=== PATIENT | female | born 1960 | race Two or more races ===

== ENCOUNTER 2017-06-07 11:23 | Emergency (ER) | payer BC ==
[2017-06-07 11:32] VITALS: BP 113/63
[2017-06-07] MEDS ORDERED: LIDOCAINE 1% INJ-PF (10 MG/ML) 30 ML SDV INJ ONE (12:25)
--- NOTE | 2017-06-07 12:32 | ER Document Report ---
HPI - HPI Pain Level: 3 Notes: Patient is a 57-year-old female presented to the ED with her daughter complaining of an abscess to her lower chest 3 days. Daughter is being used as her shot blast equipment operator today. Patient states that she has had a cystic mass in that area for the last couple of years but noticed over the last few days an increase in redness and pain to that area. She has not noticed any redness or red streaks. She still eating and drinking without any problems. She has not applied anything to the area. Denies any known insect bite to that area. Denies any recent travel, illness, or sick contacts. Denies any history of MRSA. Her PCM is in [facility]. Patient states that she was seen at the ED in [place] 3 days ago and was placed on Bactrim DS, but the redness and swelling have gotten worse since then. No other concerns or complaints. Denies any fever, headache, URI, sore throat, chest pain, palpitations, syncope, cough, wheeze, shortness of breath, abdominal pain, nausea/vomiting/diarrhea, dysuria, joint pains, other rash. Patient states she has an allergy to penicillins-- rash. Patient states that she also has hypertension and p.o. medication controlled diabetes. Denies any other significant past medical history. Denies any smoking or drug use. - ROS Notes: REVIEW OF SYSTEMS: CONSTITUTIONAL : Denies fever, chills, or sweats. Denies recent illness. EENT: Denies eye, ear, throat, or mouth pain or symptoms. Denies nasal or sinus congestion or discharge. Denies throat, tongue, or mouth swelling or difficulty swallowing. CARDIOVASCULAR: Denies chest pain. Denies palpitations or racing or irregular heart beat. Denies ankle edema. RESPIRATORY: Denies cough, cold, or chest congestion. Denies shortness of breath, difficulty breathing, or wheezing. GASTROINTESTINAL: Denies abdominal pain or distention. Denies nausea, vomiting , or diarrhea. Denies blood in vomitus, stools, or per rectum. Denies black, tarry stools. Denies constipation. GENITOURINARY: Denies difficulty urinating, painful urination, burning, frequency, blood in urine, or discharge. MUSCULOSKELETAL: Denies back or neck pain or stiffness. Denies joint pain or swelling. SKIN: see hpi NEUROLOGICAL: Denies confusion or altered mental status. Denies passing out or loss of consciousness. Denies dizziness or lightheadedness. Denies headache. Denies weakness or paralysis or loss of use of either side. Denies problems with gait or speech. Denies sensory loss, numbness, or tingling. ALL OTHER SYSTEMS REVIEWED AND NEGATIVE. Dictation was performed using Perfect voice recognition software - CARDIOVASCULAR Cardiovascular: DENIES: Chest pain - DERM Skin Color: Normal Past Medical History - Social History Smoking Status: Never Smoker Chew tobacco use (# tins/day): No Frequency of alcohol use: None Drug Abuse: None Family History: Reviewed & Not Pertinent Patient has suicidal ideation: No Patient has homicidal ideation: No - Past Medical History Cardiac Medical History: Reports: Hx Hypertension Endocrine Medical History: Reports: Hx Diabetes Mellitus Type 2 Renal/ Medical History: Denies: Hx Peritoneal Dialysis Past Surgical History: Reports: Hx Breast Surgery, Hx Hysterectomy, Hx Orthopedic Surgery - bilat total knees, bilat carpal tunnel - Immunizations Hx Diphtheria, Pertussis, Tetanus Vaccination: - unknown Vertical Provider Document - CONSTITUTIONAL Agree With Documented VS: Yes Notes: PHYSICAL EXAMINATION: GENERAL: Well-appearing, well-nourished and in no acute distress. NECK: Normal range of motion, supple without lymphadenopathy LUNGS: Breath sounds clear to auscultation bilaterally and equal. No wheezes rales or rhonchi. HEART: Regular rate and rhythm without murmurs, rubs, gallops. ABDOMEN: Soft, nontender, nondistended abdomen. No guarding, no rebound. No masses appreciated. Normal bowel sounds present. No CVA tenderness bilaterally. Extremities: No cyanosis, clubbing, or edema b/l. Peripheral pulses 2+. Capillary refill less than 3 seconds. NEUROLOGICAL: Normal speech, normal gait. Normal sensory, motor exams PSYCH: Normal mood, normal affect. SKIN: + erythemic area (approx 2.5cm) to the inferior mid chest/upper abd. + abscess without discharge or streaks. + induration. - INFECTION CONTROL TRAVEL OUTSIDE OF THE [place] IN LAST 30 DAYS: No - RESPIRATORY O2 Sat by Pulse Oximetry: 95 Course - Re-evaluation Re-evalutation: 06/07/17 13:30 Patient is an afebrile, well-hydrated, 57-year-old female presents the ED with an abscess to her inferior chest. Vitals are stable. PE otherwise unremarkable. Low suspicion for any sepsis or systemic illness at this time. Incision and drainage performed successfully without any complications wound culture was obtained. Patient started on Bactrim DS. I will add Keflex to her regimen to take as directed. Wound instructions reviewed. Conservative measures otherwise for symptoms. Recheck with her PCM in 2-3 days. May return to the ED for continued wound care as well. Return to the ED with any worsening /concerning symptoms otherwise as reviewed in discharge. Patient and daughter are in agreement. - Vital Signs Vital signs: Temp Pulse Resp BP Pulse Ox 97.7 F 69 20 113/63 95 06/07/17 11:29 06/07/17 11:29 06/07/17 11:29 06/07/17 11:29 06/07/17 11:29 Procedures - Incision and Drainage Chest Time completed: 13:20 Type: Simple Anesthetic type: 1% Lidocaine mL's of anesthetic: 8 Blade size: 11 I&D procedure: Shurclens applied, Iodoform packing placed, Sterile dressing applied Incision Method: Incision made by scalpel Amount/type of drainage: blood/purulent material approx 8cc Notes: 06/07/17 13:39 Incision and drainage procedure, risks, benefits reviewed with the patient. Verbal and written consent obtained. Sterile technique utilized. The area was extensively cleansed utilizing Hibiclens and saline. A 21-gauge needle was utilized to anesthetize the area using 8 mL's of 1% lidocaine without epinephrine. Once adequate anesthesia was provided, a #11 scalpel was utilized to make an approx 2 cm incision at the site of the abscess. Copious amounts of pustular/bloody material was expressed. Wound culture obtained. Hemostats were then utilized to break up any remaining muscular pockets within the abscess. The wound was then packed using 1/4" iodoform. Wound dressing and triple antibiotic placed. Patient tolerated procedure well. No complications. Discharge - Discharge Clinical Impression: Abscess Condition: Stable Disposition: HOME, SELF-CARE Instructions: Abscess ([facility]), Cephalexin ([facility]), Post Incision and Drainage, Trimethoprim-Sulfa ([facility]) Additional Instructions: Do not shower or bathe for 24 hours. After 24 hours she may shower but no submersion of the wound under water. Keep the original dressing on the wound for 24 hours unless the drainage stops through. Change the dressing daily thereafter and use a small amount of triple antibiotic ointment over the open wound. Return to the ED and/or your PCM in 2-3 days for recheck and continue direction for wound packing. Monitor for any signs of worsening pain or redness , streaks, and/or fever. Return to the ED if noticing any of the above symptoms or as needed. Take medications as directed. Consider consult with General Surgery to excise cyst/lesion once infection heals Monitor for any allergy signs with the keflex (rash, swelling of lips/tongue/ throat, trouble swallowing/breathing, itching)--return to ED with any development of allergy symptoms. Return to the ED with any fever, worsening pain/symptoms, chest pain, palpitations, syncope, cough, wheeze, trouble breathing, shortness of breath, abdominal pain, nausea/vomiting/diarrhea, or any other worsening/concerning symptoms as needed. Prescriptions: Cephalexin Monohydrate [Keflex 500 mg Capsule] 500 mg PO BID #20 capsule Referrals: YOBANI GRIMM MD [ACTIVE STAFF] - Follow up in 1 week
== END 2017-06-07 14:04 | disposition home or self-care (01) ==
LOC: ER 11:23
PROC: 0H95XZZ Drainage of Chest Skin, External Approach (ICD-10-PCS; principal; 2017-06-07)
DX: L02.213 Cutaneous abscess of chest wall (principal); I10 Essential (primary) hypertension; E11.9 Type 2 diabetes mellitus without complications; Z90.710 Acquired absence of both cervix and uterus
CPT/HCPCS: 87070; 87075; 87077; 87186; 87205; 99283; A6266

== ENCOUNTER 2017-06-08 15:32 | Emergency (ER) | payer BC ==
[2017-06-08] MEDS ORDERED: CEFTRIAXONE INJ 1000 MG VIAL IM ONE (16:44)
[2017-06-08] MEDS ORDERED: LIDOCAINE 1% INJ-PF (10 MG/ML) 30 ML SDV INJ ONE (16:44)
[2017-06-08] MEDS ORDERED: HYDROCODONE/ACETAMINOPHEN 5-325 MG 6 TAB/DSPK PO PRN (16:45)
--- NOTE | 2017-06-08 16:48 | ER Document Report ---
HPI - HPI Pain Level: 4 Notes: Patient is a 57-year-old female who presents the ED for a wound recheck of her incision and drainage that was performed by myself yesterday. Worried because she felt some chills last night along with continued pain and drainage. Otherwise she is still taking her medication as directed. Denies any worsening redness, streaks, fever, chest pain, palpitations, sleeping, cough, shortness of breath, abdominal pain, nausea/vomiting/diarrhea. Patient is currently taking Bactrim and Keflex for her infection. Patient is accompanied by her daughter again. - ROS Notes: REVIEW OF SYSTEMS: CONSTITUTIONAL : Denies fever, chills, or sweats. Denies recent illness. CARDIOVASCULAR: Denies chest pain. Denies palpitations or racing or irregular heart beat. Denies ankle edema. RESPIRATORY: Denies cough, cold, or chest congestion. Denies shortness of breath, difficulty breathing, or wheezing. GASTROINTESTINAL: Denies abdominal pain or distention. Denies nausea, vomiting , or diarrhea. Denies blood in vomitus, stools, or per rectum. Denies black, tarry stools. Denies constipation. GENITOURINARY: Denies difficulty urinating, painful urination, burning, frequency, blood in urine, or discharge. MUSCULOSKELETAL: Denies back or neck pain or stiffness. Denies joint pain or swelling. SKIN: see hpi NEUROLOGICAL: Denies confusion or altered mental status. Denies passing out or loss of consciousness. Denies dizziness or lightheadedness. Denies headache. Denies weakness or paralysis or loss of use of either side. Denies problems with gait or speech. Denies sensory loss, numbness, or tingling. Denies seizures. PSYCHIATRIC: Denies anxiety or stress. Denies depression, suicidal ideation, or homicidal ideation. ALL OTHER SYSTEMS REVIEWED AND NEGATIVE. Dictation was performed using [employer] voice recognition software - DERM Skin Color: Normal Past Medical History - Social History Smoking Status: Unknown if Ever Smoked Family History: Reviewed & Not Pertinent Patient has suicidal ideation: No Patient has homicidal ideation: No - Past Medical History Cardiac Medical History: Reports: Hx Hypertension Endocrine Medical History: Reports: Hx Diabetes Mellitus Type 2 Renal/ Medical History: Denies: Hx Peritoneal Dialysis Past Surgical History: Reports: Hx Breast Surgery, Hx Hysterectomy, Hx Orthopedic Surgery - bilat total knees, bilat carpal tunnel - Immunizations Hx Diphtheria, Pertussis, Tetanus Vaccination: - unknown Vertical Provider Document - CONSTITUTIONAL Agree With Documented VS: Yes Notes: PHYSICAL EXAMINATION: GENERAL: Well-appearing, well-nourished and in no acute distress. Chest/Upper abd: healing I&D visualized. + erythema surrounding the where the procedure took place. Improved from yesterday. Packing still in place. Discharge noted to the gauze upon removal. No abundant purulent discharge noted or foul smell. No streaks or new abscess formation noted. LUNGS: Breath sounds clear to auscultation bilaterally and equal. No wheezes rales or rhonchi. HEART: Regular rate and rhythm without murmurs, rubs, gallops. PSYCH: Normal mood, normal affect. SKIN: Warm, Dry, normal turgor, no rashes or lesions noted.--See exam above as well. - INFECTION CONTROL TRAVEL OUTSIDE OF THE [place] IN LAST 30 DAYS: No - RESPIRATORY O2 Sat by Pulse Oximetry: 96 Course - Re-evaluation Re-evalutation: 06/08/17 21:51 Patient is an afebrile, well-hydrated, 57-year-old female who presents the ED for a wound recheck status post incision and drainage performed by myself yesterday. Vitals are stable. PE otherwise unremarkable. The infected area appears to be improving, and not getting worse. I would like her to continue the Bactrim and Keflex combination. Reviewed her wound culture and a preliminary report stated gram-negative organism. Rocephin 1 g given IM today. Because of the discomfort the patient states she is experiencing, I will also send her home with a [employer] for [employer] dispense back from the ED. We will leave the packing in place until tomorrow, at which time the packing can be removed and if needed new packing can then be placed--provider discretion. Continue wound care as instructed. Recheck with the ED/PCM/urgent care for wound recheck tomorrow. Return to ED with any worsening/concerning symptoms otherwise as reviewed in discharge. Patient and daughter are in agreement. - Vital Signs Vital signs: Temp Pulse Resp BP Pulse Ox 98.3 F 78 15 109/64 96 06/08/17 15:40 06/08/17 15:40 06/08/17 15:40 06/08/17 15:40 06/08/17 15:40 Discharge - Discharge Clinical Impression: Encounter for wound re-check Condition: Stable Disposition: HOME, SELF-CARE Instructions: Abscess ([facility]) Additional Instructions: Continue direction as per yesterday's visit Continue taking medications as directed Keep the skin clean and apply bacitracin daily Tylenol/ibuprofen as needed Recheck with a PCM/ED tomorrow for packing removal and recheck Return to the ED sooner with any development of fever, chest pain, palpitations , shortness of breath, trouble breathing, abdominal pain, nausea/vomiting, worsening redness/streaks, or any other worsening/concerning symptoms otherwise as needed. Referrals: YOBANI GRIMM MD [ACTIVE STAFF] - Follow up as needed DERMATOLOGY [Provider Group] - Follow up as needed
[2017-06-08 17:21] VITALS: BP 112/67
== END 2017-06-08 17:21 | disposition home or self-care (01) ==
LOC: ER 15:32
DX: Z48.89 Encounter for other specified surgical aftercare (principal); B99.9 Unspecified infectious disease; R68.83 Chills (without fever); E11.9 Type 2 diabetes mellitus without complications; I10 Essential (primary) hypertension
CPT/HCPCS: 99282; 96372; J3490; J0696

== ENCOUNTER 2017-06-09 10:33 | Emergency (ER) | payer BC ==
[2017-06-09 10:40] VITALS: BP 102/55
--- NOTE | 2017-06-09 11:11 | ER Document Report ---
ED Suture/Wound Recheck - General Chief Complaint: Wound Recheck Stated Complaint: WOUND RECHECK Time Seen by Provider: 06/09/17 10:45 Notes: 57 yo female here for wound check of I&D site to chest wall. wound was re- packed yesterday. pt received a Rocephin injection and is taking oral antibiotics as prescribed. pt reports feeling better than yesterday. no chills , no fever. has not needed any pain medication. TRAVEL OUTSIDE OF THE [place] IN LAST 30 DAYS: No - HPI Previous ED treatment: I&D of abscess Antibiotics given previously: IM Quality of pain: No pain Symptoms since procedure: No complaints Exacerbated by: Denies Relieved by: Denies - Related Data Allergies/Adverse Reactions: Penicillins Allergy (Verified 06/08/17 15:39) Past Medical History - General Information source: Patient, Relative - Social History Smoking Status: Never Smoker Frequency of alcohol use: None Lives with: Family Family History: Reviewed & Not Pertinent Patient has suicidal ideation: No Patient has homicidal ideation: No - Past Medical History Cardiac Medical History: Reports: Hx Hypertension Endocrine Medical History: Reports: Hx Diabetes Mellitus Type 2 Renal/ Medical History: Denies: Hx Peritoneal Dialysis Past Surgical History: Reports: Hx Breast Surgery, Hx Hysterectomy, Hx Orthopedic Surgery - bilat total knees, bilat carpal tunnel - Immunizations Hx Diphtheria, Pertussis, Tetanus Vaccination: - unknown Review of Systems - Review of Systems Constitutional: No symptoms reported EENT: No symptoms reported Cardiovascular: No symptoms reported Respiratory: No symptoms reported Gastrointestinal: No symptoms reported Genitourinary: No symptoms reported Female Genitourinary: No symptoms reported Musculoskeletal: No symptoms reported Skin: No symptoms reported Hematologic/Lymphatic: No symptoms reported Neurological/Psychological: No symptoms reported Physical Exam - Vital signs Vitals: Temp Pulse Resp BP Pulse Ox 97.7 F 75 16 102/55 L 96 06/09/17 10:39 06/09/17 10:39 06/09/17 10:39 06/09/17 10:39 06/09/17 10:39 Interpretation: Normal - General General appearance: Appears well, Alert - HEENT Head: Normocephalic, Atraumatic Eyes: Normal Pupils: PERRL - Respiratory Respiratory status: No respiratory distress Chest status: Nontender Breath sounds: Normal Chest palpation: Normal - Cardiovascular Rhythm: Regular Heart sounds: Normal auscultation Murmur: No - Abdominal Inspection: Normal Distension: No distension Bowel sounds: Normal Tenderness: Nontender Organomegaly: No organomegaly - Back Back: Normal, Nontender - Extremities General upper extremity: Normal inspection, Nontender, Normal color, Normal ROM , Normal temperature General lower extremity: Normal inspection, Nontender, Normal color, Normal ROM , Normal temperature, Normal weight bearing. No: Ernesto's sign - Neurological Neuro grossly intact: Yes Cognition: Normal Orientation: AAOx4 Clarissa Coma Scale Eye Opening: Spontaneous [place] Coma Scale Verbal: Oriented [place] Coma Scale Motor: Obeys Commands [place] Coma Scale Total: 15 Speech: Normal Motor strength normal: LUE, RUE, LLE, RLE Sensory: Normal - Psychological Associated symptoms: Normal affect, Normal mood - Skin Skin Temperature: Warm - I&D site to anterior chest with no erythema, packing removed. no drainage. Skin Moisture: Dry Skin Color: Normal Course - Re-evaluation Re-evalutation: 06/09/17 11:11 wound not repacked. healing well. bacitracin and dressing applied. reviewed wound care. pt stable for discharge - Vital Signs Vital signs: Temp Pulse Resp BP Pulse Ox 97.7 F 75 16 102/55 L 96 06/09/17 10:39 06/09/17 10:39 06/09/17 10:39 06/09/17 10:39 06/09/17 10:39 Discharge - Discharge Clinical Impression: Abscess Condition: Stable Disposition: HOME, SELF-CARE Instructions: Abscess ([facility]), Post Incision and Drainage Additional Instructions: wash wound with antibacterial soap and water, irrigate well apply bacitracin and bandaid after cleaning continue current antibiotics as prescribed follow up with primary care
== END 2017-06-09 11:19 | disposition home or self-care (01) ==
LOC: ER 10:33
DX: L02.213 Cutaneous abscess of chest wall (principal)
CPT/HCPCS: 99282

== ENCOUNTER → 2018-10-05 | Outpatient (CLI) | payer OTHER, BC ==
[2018-10-05 12:30] LABS: URIC ACID 5.2 mg/dL (2.5-7.5)
== END ==
LOC: OD 11:26
PROVIDERS: ATTEND Orthopaedic Surgery
DX: M18.12 Unilateral primary osteoarthritis of first carpometacarpal joint, left hand (principal)
CPT/HCPCS: 36415; 84550; 85652; 86038; 86140; 86200; 86430

== ENCOUNTER → 2019-06-23 | Outpatient (CLI) | payer BC ==
--- NOTE | 2019-06-23 12:37 | RADIOLOGY REPORT (SQ) ---
EXAM DESCRIPTION: CT ABD/PELVIS NO ORAL OR IV COMPLETED DATE/TIME: 06/23/2019 10:27 am REASON FOR STUDY: R10.2 PELVIC AND PERINEAL PAIN R10.2 PELVIC AND PERINEAL PAIN COMPARISON: None. TECHNIQUE: CT scan of the abdomen and pelvis performed without intravenous or oral contrast. Images reviewed with lung, soft tissue, and bone windows. Reconstructed coronal and sagittal MPR images revi ewed. All images stored on PACS. All CT scanners at this facility use dose modulation, iterative reconstruction, and/or weight based d osing when appropriate to reduce radiation dose to as low as reasonably achievable (ALARA). [facility]: Dose Right [facility]: CareDose [facility]: Dose Right [facility]: Teradose 4D [facility]: Smart FolioDynamix RADIATION DOSE: CT Rad equipment meets quality standard of care and radiation dose reduction techniq ues were employed. CTDIvol: 24.7 mGy. DLP: 1295 mGy-cm.mGy. LIMITATIONS: None. FINDINGS: LOWER CHEST: No significant findings. No nodules or infiltrates. NON-CONTRASTED LIVER, SPLEEN, ADRENALS: Evaluation limited by lack of IV contrast. No identified sign ificant masses. PANCREAS: No masses. No peripancreatic inflammatory changes. GALLBLADDER: No identified stones by CT criteria. No inflammatory changes to suggest cholecystitis. RIGHT KIDNEY AND URETER: No suspicious masses. Assessment limited by lack of IV contrast. No signif icant calcifications. No hydronephrosis or hydroureter. LEFT KIDNEY AND URETER: No suspicious masses. Assessment limited by lack of IV contrast. No signifi cant calcifications. No hydronephrosis or hydroureter. AORTA AND RETROPERITONEUM: No aneurysm. No retroperitoneal masses or adenopathy. BOWEL AND PERITONEAL CAVITY: No obvious masses or inflammatory changes. No free fluid. APPENDIX: Normal. PELVIS, BLADDER, AND ABDOMINAL WALL:No abnormal masses. No free fluid. Bladder normal. BONES: No significant findings. OTHER: No other significant finding. IMPRESSION: NO SIGNIFICANT OR ACUTE PROCESS IN THE ABDOMEN OR PELVIS. COMMENT: Quality ID # [id number]: Final reports with documentation of one or more dose reduction techniques (e.g., Automated exposure control, adjustment of the mA and/or kV according to patient size, use of iterative reconstruction technique) TECHNICAL DOCUMENTATION: JOB ID: [id number] [employer]- All Rights Reserved Reading location - IP/workstation name: [facility]
== END ==
LOC: RAD 09:55
PROVIDERS: ATTEND Obstetrics & Gynecology
DX: N93.9 Abnormal uterine and vaginal bleeding, unspecified (principal)
CPT/HCPCS: 74176

== ENCOUNTER 2020-01-05 11:27 | Emergency (ER) | payer BC ==
[2020-01-05 12:04] VITALS: BP 134/72
--- NOTE | 2020-01-05 12:19 | ER Document Report ---
HPI - HPI Time Seen by Provider: 01/05/20 12:07 Pain Level: 1 Notes: Patient is a 59-year-old female with no stated past medical history presents complaining of cat bite to her right hand that occurred 1.5 days ago. Patient states that she has noted some swelling and some pain today. She has not noticed any abscess or purulent discharge. Patient states that it was her own cat that is vaccinated that bit her. The cat has not been acting strangely or sickly. She has no other concerns or complaints. She does have an allergy to penicillins which causes a rash. Denies any headache, fever, neck pain, URI, sore throat, chest pain, palpitations, syncope, cough, shortness of breath, wheeze, dyspnea, abdominal pain, nausea/vomiting/diarrhea, urinary retention, dysuria, hematuria, loss of control of bowel or bladder, numbness/tingling, saddle anesthesia, muscle paralysis, or rash. - ROS Systems Reviewed and Negative: Yes All other systems reviewed and negative Past Medical History - Social History Smoking Status: Never Smoker Family History: Reviewed & Not Pertinent Patient has suicidal ideation: No Patient has homicidal ideation: No - Past Medical History Cardiac Medical History: Reports: Hx Hypertension Denies: Hx Coronary Artery Disease, Hx Heart Attack Pulmonary Medical History: Denies: Hx Asthma, Hx Bronchitis, Hx COPD, Hx Pneumonia Neurological Medical History: Denies: Hx Cerebrovascular Accident, Hx Seizures Endocrine Medical History: Reports: Hx Diabetes Mellitus Type 2 Renal/ Medical History: Denies: Hx Peritoneal Dialysis Musculoskeletal Medical History: Denies Hx Arthritis Past Surgical History: Reports: Hx Breast Surgery, Hx Hysterectomy, Hx Orthopedic Surgery - bilat total knees, bilat carpal tunnel - Immunizations Hx Diphtheria, Pertussis, Tetanus Vaccination: Yes - unknown Vertical Provider Document - CONSTITUTIONAL Agree With Documented VS: Yes Notes: PHYSICAL EXAMINATION: GENERAL: Well-appearing, well-nourished and in no acute distress. LUNGS: Breath sounds clear to auscultation bilaterally and equal. No wheezes rales or rhonchi. HEART: Regular rate and rhythm without murmurs, rubs, gallops. Musculoskeletal: FROM to passive/active. Strength 5+/5. No bony tenderness. N/V intact distal throughout. Extremities: No cyanosis, clubbing, or edema b/l. Peripheral pulses 2+. Capillary refill less than 3 seconds. NEUROLOGICAL: Cranial nerves grossly intact. Normal speech, normal gait. Normal sensory, motor exams PSYCH: Normal mood, normal affect. SKIN: rt hand: there is a small puncture site noted with surrounding erythema. No fluctuance, streaks, induration, or discharge noted. + mild tenderness. - INFECTION CONTROL TRAVEL OUTSIDE OF THE [place] IN LAST 30 DAYS: No Course - Re-evaluation Re-evalutation: 01/05/20 12:21 Patient is an afebrile, well-hydrated, 59-year-old female who presents to the ED with cat bite to the right hand with cellulitis present, no evidence of abscess warranting I&D. Vitals are acceptable without any significant tachycardia, tachypnea, or hypoxia. PE is otherwise unremarkable for any neurovascular compromise, obvious tendon/ligament rupture, obvious fracture/dislocation, septic joint. Patient is nontoxic-appearing. No other labs or imaging warrant ed at this time based on H&P. Due to patient's penicillin allergy, I will send her home with clindamycin and Bactrim. Conservative measures otherwise for symptoms. Recheck with your PCM in 3-5 days. Consider consult orthopedics. Return to the ED with any worsening/concerning symptoms otherwise as reviewed in discharge. Patient is in agreement. - Vital Signs Vital signs: Temp Pulse Resp BP Pulse Ox 97.9 F 85 20 134/72 H 95 01/05/20 12:03 01/05/20 12:03 01/05/20 12:03 01/05/20 12:03 01/05/20 12:03 Discharge - Discharge Clinical Impression: Cat bite of right hand Qualifiers: Encounter type: initial encounter Qualified Code(s): S61.451A - Open bite of right hand, initial encounter Condition: Stable Disposition: HOME, SELF-CARE Additional Instructions: Keep the skin clean Wash with soap and water Tylenol/ibuprofen if needed Triple antibiotic ointment daily Take medication as directed Monitor for any worsening symptoms Recheck with your PCM in 3-5 days Consider consult with General Surgeon for ongoing/worsening symptoms Return to the ED with any worsening symptoms and/or development of fever, headache, chest pain, palpitations, syncope, shortness of breath, trouble breathing, abdominal pain, n/v/d, abscess, purulent discharge, red streaks, worsening swelling, or other worsening symptoms that are concerning to you. Prescriptions: Sulfamethoxazole/Trimethoprim [Bactrim Ds Tablet] 1 each PO BID #20 tablet Clindamycin HCl 300 mg PO TID #30 capsule Forms: Elevated Blood Pressure Referrals: SHERIE DOMINGUEZ MD [ACTIVE STAFF] - Follow up as needed
== END 2020-01-05 12:19 | disposition home or self-care (01) ==
LOC: ER 11:27
DX: S61.451A Open bite of right hand, initial encounter (principal); L03.113 Cellulitis of right upper limb; W55.01XA Bitten by cat, initial encounter; I10 Essential (primary) hypertension; E11.9 Type 2 diabetes mellitus without complications; Z23 Encounter for immunization; Z90.710 Acquired absence of both cervix and uterus
CPT/HCPCS: 99283

== ENCOUNTER 2020-04-10 16:29 | Emergency (ER) | payer BC ==
[2020-04-10 16:47] VITALS: BP 135/72
--- NOTE | 2020-04-10 17:10 | ER Document Report ---
HPI - HPI Patient complains to provider of: left foot pain Time Seen by Provider: 04/10/20 16:55 Onset: Other - 2 weeks Onset/Duration: Persistent Quality of pain: Achy Context: This 60-year-old female history of diabetes who speaks primarily Gabonese presents to the emergency department with complaints of left foot pain for the past 2 weeks. Denies trauma. Reports it feels like something is in her foot. Interpretation done by Angela. She denies fever vomiting diarrhea. Reports it hurts to walk. Associated Symptoms: None Exacerbated by: Walking Relieved by: Denies Similar symptoms previously: No Recently seen / treated by doctor: No Past Medical History - General Information source: Patient - Social History Smoking Status: Unknown if Ever Smoked Cigarette use (# per day): No Frequency of alcohol use: None Drug Abuse: None Family History: Reviewed & Not Pertinent Patient has suicidal ideation: No Patient has homicidal ideation: No - Past Medical History Cardiac Medical History: Reports: Hx Hypertension Denies: Hx Coronary Artery Disease, Hx Heart Attack Pulmonary Medical History: Denies: Hx Asthma, Hx Bronchitis, Hx COPD, Hx Pneumonia Neurological Medical History: Denies: Hx Cerebrovascular Accident, Hx Seizures Endocrine Medical History: Reports: Hx Diabetes Mellitus Type 2 Renal/ Medical History: Denies: Hx Peritoneal Dialysis Musculoskeletal Medical History: Denies Hx Arthritis Past Surgical History: Reports: Hx Breast Surgery, Hx Hysterectomy, Hx Orthopedic Surgery - bilat total knees, bilat carpal tunnel - Immunizations Hx Diphtheria, Pertussis, Tetanus Vaccination: Yes - unknown Vertical Provider Document - CONSTITUTIONAL Agree With Documented VS: Yes Exam Limitations: No Limitations General Appearance: WD/WN, No Apparent Distress - INFECTION CONTROL TRAVEL OUTSIDE OF THE [place] IN LAST 30 DAYS: No - HEENT HEENT: Atraumatic, Normocephalic - NECK Neck: Supple - RESPIRATORY Respiratory: No Respiratory Distress - CARDIOVASCULAR Cardiovascular: Regular Rate - MUSCULOSKELETAL/EXTREMETIES Musculoskeletal/Extremeties: MAEW, FROM, Tender - plantar wart noted to left midlateral foot, no erythema/no warmth. cap refill <3 seconds, pedal pulse +3 - NEURO Level of Consciousness: Awake, Alert, Appropriate Motor/Sensory: No Motor Deficit - DERM Integumentary: Warm, Dry Course - Re-evaluation Re-evalutation: 04/10/20 17:19 60-year-old female with history of diabetes presents with plantars wart to the bottom of her left foot. Patient reports he felt like something was in the foot so I did offer an x-ray which she declined. Patient reports it has been there for the past 2 weeks and would like me to remove it. We discussed [id number] treatment. Patient speaks primarily [place]onese but does speak and understand some [place] Citizen. Patient also reports that she does read [place] Citizen. She was given written resource information regarding plantars warts and treatment. She was instructed to monitor the bottom of her foot and follow-up with her primary care provider within 1 week. She was instructed to monitor her foot for signs of infection such as redness swelling pain. She was instructed on the concern regarding infection because she is a diabetic. She verbalized understanding to all instructions. - Vital Signs Vital signs: Temp Pulse Resp BP Pulse Ox 98.2 F 78 16 135/72 H 95 04/10/20 16:45 04/10/20 16:45 04/10/20 16:45 04/10/20 16:45 04/10/20 16:45 Discharge - Discharge Clinical Impression: Foot pain, left, Plantar wart of left foot Condition: Stable Disposition: HOME, SELF-CARE Instructions: Plantar Warts ([facility]), Salicylic Acid Medication Additional Instructions: *You have been treated for a plantars wart *Apply Salicylic acid twice a day: Soak wart in warm water for 5 minutes. Dry area thoroughly. Apply 1 drop to cover wart. Let dry. Repeat once or twice daily until wart is removed for up to 12 weeks. DO NOT APPLY SALICYLIC ACID IF YOUR FOOT BECOMES RED, WARM, INCREASED PAIN *Monitor your foot for signs of infection such as increasing pain, redness, swelling, warmth, *Wear good supporting shoes *Follow up with your primary care provider within 1 week *Return to emergency department worsening symptoms, concerns, signs of infection Monitor your blood pressure. Your blood pressure was elevated today. This may be because you were anxious, in pain or because you need medication. It is important to follow up with your primary care provider for full evaluation. Forms: Elevated Blood Pressure
== END 2020-04-10 17:30 | disposition home or self-care (01) ==
LOC: ER 16:29
DX: B07.0 Plantar wart (principal); M79.672 Pain in left foot; I10 Essential (primary) hypertension; E11.9 Type 2 diabetes mellitus without complications
CPT/HCPCS: 99283

== ENCOUNTER → 2020-10-10 | Outpatient (CLI) | payer BC ==
[2020-10-10 12:03] LABS: HEMATOCRIT 41.1 % (36.0-47.0); HEMOGLOBIN 13.9 g/dL (12.0-15.5); MEAN CORPUSCULAR HEMOGLOBIN 29.6 pg (27.0-33.4); MEAN CORPUSCULAR HGB CONC 33.8 g/dL (32.0-36.0); MEAN CORPUSCULAR VOLUME 88 fl (80-97); PLATELET COUNT 247 10^3/uL (150-450); RED CELL DISTRIBUTION WIDTH 13.9 % (11.5-14.0); WHITE BLOOD COUNT 5.3 10^3/uL (4.0-10.5)
[2020-10-10 12:24] LABS: ALBUMIN 4.7 g/dL (3.5-5.0); ALKALINE PHOSPHATASE 107 U/L (38-126); ANION GAP 12 (5-19); ASPARTATE AMINO TRANSFERASE 28 U/L (14-36); BILIRUBIN,TOTAL 0.8 mg/dL (0.2-1.3); BLOOD UREA NITROGEN 14 mg/dL (7-20); CALCIUM 9.6 mg/dL (8.4-10.2); CARBON DIOXIDE 25 mmol/L (22-30); CHLORIDE 104 mmol/L (98-107); GLUCOSE 100 mg/dL (75-110); POTASSIUM 4.7 mmol/L (3.6-5.0); TOTAL PROTEIN 7.4 g/dL (6.3-8.2)
[2020-10-10 12:37] LABS: NT PRO BNP 102 pg/mL (<125)
[2020-10-10 12:41] LABS: TROPONIN I < 0.012 ng/mL
== END ==
LOC: OD 10:44
PROVIDERS: ATTEND Physician Assistant
DX: R07.9 Chest pain, unspecified (principal); R06.02 Shortness of breath
CPT/HCPCS: 36415; 80053; 83880; 84484; 85027; 85379

== ENCOUNTER → 2020-10-21 | Outpatient (CLI) | payer BC ==
--- NOTE | 2020-10-21 16:03 | RADIOLOGY REPORT (SQ) ---
EXAM DESCRIPTION: CT CHEST WITHOUT IMAGES COMPLETED DATE/TIME: 10/21/2020 3:54 pm REASON FOR STUDY: R07.9 CHEST PAIN, UNSPECIFIED R07.9 CHEST PAIN, UNSPECIFIED COMPARISON: None. TECHNIQUE: CT scan performed of the chest without intravenous contrast. Images reviewed with lung, soft tissue and bone windows. Reconstructed coronal and sagittal MPR images reviewed. All images st ored on PACS. All CT scanners at this facility use dose modulation, iterative reconstruction, and/or weight based d osing when appropriate to reduce radiation dose to as low as reasonably achievable (ALARA). [facility]: Dose Right [facility]: CareDose [facility]: Dose Right [facility]: Teradose 4D [facility]: [employer] RADIATION DOSE: CT Rad equipment meets quality standard of care and radiation dose reduction techniq ues were employed. CTDIvol: 19.5 mGy. DLP: 749 mGy-cm. mGy. LIMITATIONS: No technical limitations. FINDINGS: LUNGS AND PLEURA: Linear atelectasis or scarring in the left base anteriorly. No consolid ation. No suspicious pulmonary nodules. No pleural effusions. HILAR AND MEDIASTINAL STRUCTURES: No identified masses or abnormal nodes. No obvious aneurysm. HEART AND VASCULAR STRUCTURES: No aneurysm. No pericardial effusion. UPPER ABDOMEN: Hepatomegaly. THYROID AND OTHER SOFT TISSUES: 1.8 cm nodule in the right lobe of the thyroid. Correlation with ult rasound is recommended as clinically indicated. BONES: No significant finding. HARDWARE: None in the chest. OTHER: No other significant findings. IMPRESSION: No significant findings in the chest. 1.8 cm right thyroid nodule. Correlation with ultrasound is recommended. Hepatomegaly. TECHNICAL DOCUMENTATION: JOB ID: [id number] Quality ID # [id number]: Final reports with documentation of one or more dose reduction techniques (e.g., Au tomated exposure control, adjustment of the mA and/or kV according to patient size, use of iterative reconstruction technique) 2010 [employer]- All Rights Reserved Reading location - IP/workstation name: [email or web address]
== END ==
LOC: RAD 15:20
PROVIDERS: ATTEND Physician Assistant
DX: R07.9 Chest pain, unspecified (principal); E04.1 Nontoxic single thyroid nodule; R16.0 Hepatomegaly, not elsewhere classified
CPT/HCPCS: 71250

== ENCOUNTER 2020-12-17 09:25 | Day surgery (SDC) | payer BC ==
[~2020-12-17 09:25] MED LIST: LIDOCAINE 2% INJ-PF (20 MG/ML) 10 ML AMPUL ONE; PROPOFOL INJ 200 MG/20 ML VIAL IV ONE
[2020-12-17 10:46] VITALS: BP 140/78
--- NOTE | 2020-12-17 13:34 | Operative Report ---
Operative Report DATE OF SURGERY: 12/17/20 Operative Report: Risks, benefits and alternatives of procedure discussed patient is taken to the OR and propofol sedation provided scope is inserted into the patient's rectum and advanced all the way to the cecum prep is good all segments are visualized PREOPERATIVE DIAGNOSIS: rectal bleeding POSTOPERATIVE DIAGNOSIS: right colon inflammation. diverticulosis. internal hemorrhoids OPERATION: colonoscopy with biopsy SURGEON: ESTELLA SHAH ANESTHESIA: LMAC TISSUE REMOVED OR ALTERED: as noted above COMPLICATIONS: none ESTIMATED BLOOD LOSS: none INTRAOPERATIVE FINDINGS: as noted above PROCEDURE: patient tolerated the procedure well did not have any post procedure complications patient is discharged in good condition discharge date: 12/17/2020 Discharge diet : regular Discharge activity: regular will follow up in 2-3 weeks patient is instructed to call the office or go to ED if needed will follow pathology 5 year surveillance colonoscopy
== END 2020-12-17 11:05 | disposition home or self-care (01) ==
LOC: OROUT 09:25
PROVIDERS: ATTEND Internal Medicine Gastroenterology
DX: K57.30 Diverticulosis of large intestine without perforation or abscess without bleeding (principal); K52.9 Noninfective gastroenteritis and colitis, unspecified; K64.8 Other hemorrhoids; I10 Essential (primary) hypertension; Z79.899 Other long term (current) drug therapy; Z79.84 Long term (current) use of oral hypoglycemic drugs; K29.70 Gastritis, unspecified, without bleeding; E11.9 Type 2 diabetes mellitus without complications
CPT/HCPCS: 45380; 82962; 88305 ×2; J2704; J3490; 811